=== PATIENT | female | born 1960 | race Caucasian/White ===

== ENCOUNTER → 2016-07-15 | Outpatient (CLI) | payer OTHER ==
[~2016-07-15] MED LIST: FLUOXETINE20 MG PO; MULTIPLE VITAMI1 CAP PO; PREMARIN0.3 MG PO; PREVACID 30MG30 M1 PO; VYTORIN 10 MG-41 TAB PO
== END ==
LOC: COL.RAD 12:39
DX: R22.1 Localized swelling, mass and lump, neck (principal)

== ENCOUNTER → 2016-07-25 | Outpatient (CLI) | payer OTHER | LOC: COL.RAD 07:00 | DX: Z13.89 Encounter for screening for other disorder (principal) | CPT/HCPCS: Q9967 ==

== ENCOUNTER → 2016-09-29 | Outpatient (REF) | LOC: COL.LAB 15:49 | DX: Z53.9 Procedure and treatment not carried out, unspecified reason (principal) ==

== ENCOUNTER → 2016-10-12 | Outpatient (REF) | LOC: COL.LAB 11:54 | DX: Z02.81 Encounter for paternity testing (principal) ==

== ENCOUNTER → 2017-08-25 | Outpatient (CLI) | payer OTHER | LOC: MC.RAD 06:52 | DX: Z12.31 Encounter for screening mammogram for malignant neoplasm of breast (principal) ==

== ENCOUNTER → 2019-08-22 | Outpatient (CLI) | payer OTHER | LOC: MC.RAD 07:20 | DX: Z12.31 Encounter for screening mammogram for malignant neoplasm of breast (principal) ==

== ENCOUNTER → 2020-09-23 | Outpatient (CLI) | payer OTHER | LOC: MC.RAD 07:52 | DX: Z12.31 Encounter for screening mammogram for malignant neoplasm of breast (principal) ==

== ENCOUNTER → 2022-01-04 | Outpatient (CLI) | payer OTHER | LOC: MC.RAD 08:23 | DX: Z12.31 Encounter for screening mammogram for malignant neoplasm of breast (principal) ==

== ENCOUNTER → 2022-01-27 | Outpatient (CLI) | payer OTHER | LOC: MHCPAIN 13:45 | DX: M54.2 Cervicalgia (principal); M47.812 Spondylosis without myelopathy or radiculopathy, cervical region; M54.81 Occipital neuralgia ==

== ENCOUNTER → 2022-02-07 | Outpatient (CLI) | payer OTHER | LOC: MHCPAIN 12:56 | DX: M79.18 Myalgia, other site (principal); M54.6 Pain in thoracic spine | CPT/HCPCS: J3301 ==

== ENCOUNTER → 2022-02-15 | Outpatient (CLI) | payer OTHER | LOC: MHCPAIN 11:26 | DX: M54.2 Cervicalgia (principal); M47.812 Spondylosis without myelopathy or radiculopathy, cervical region; M50.30 Other cervical disc degeneration, unspecified cervical region | CPT/HCPCS: G0463 ==